=== PATIENT | female | born 1985 ===

== ENCOUNTER 2022-05-29 08:12 | Outpatient (CLI) | payer OTHER | END 2022-05-29 09:12 | disposition home or self-care (01) | LOC: PRENATAL 08:12 | PROVIDERS: ATTEND Obstetrics & Gynecology Maternal & Fetal Medicine | DX: O36.80X0 Pregnancy with inconclusive fetal viability, not applicable or unspecified (principal); O34.10 Maternal care for benign tumor of corpus uteri, unspecified trimester; O09.529 Supervision of elderly multigravida, unspecified trimester; Z3A.12 12 weeks gestation of pregnancy ==

== ENCOUNTER 2022-07-24 08:02 | Outpatient (CLI) | payer OTHER | END 2022-07-24 09:05 | disposition home or self-care (01) | LOC: PRENATAL 08:02 | PROVIDERS: ATTEND Obstetrics & Gynecology Maternal & Fetal Medicine | DX: O35.9XX0 Maternal care for (suspected) fetal abnormality and damage, unspecified, not applicable or unspecified (principal); O35.3XX0 Maternal care for (suspected) damage to fetus from viral disease in mother, not applicable or unspecified; O09.529 Supervision of elderly multigravida, unspecified trimester; O34.10 Maternal care for benign tumor of corpus uteri, unspecified trimester; Z3A.20 20 weeks gestation of pregnancy ==

== ENCOUNTER 2022-09-08 08:50 | Outpatient (CLI) | payer OTHER | END 2022-09-08 10:35 | disposition home or self-care (01) | LOC: PRENATAL 08:50 | PROVIDERS: ATTEND Obstetrics & Gynecology Maternal & Fetal Medicine | DX: O26.849 Uterine size-date discrepancy, unspecified trimester (principal); O09.529 Supervision of elderly multigravida, unspecified trimester; O34.10 Maternal care for benign tumor of corpus uteri, unspecified trimester; Z3A.26 26 weeks gestation of pregnancy ==

== ENCOUNTER 2022-09-11 07:43 | Outpatient (CLI) | payer OTHER | END 2022-09-12 10:58 | disposition home or self-care (01) | LOC: OBS/DEL 07:43 | PROVIDERS: ATTEND Student in an Organized Health Care Education/Training Program | DX: O34.42 Maternal care for other abnormalities of cervix, second trimester (principal); N84.1 Polyp of cervix uteri; O46.8X2 Other antepartum hemorrhage, second trimester; Z3A.27 27 weeks gestation of pregnancy; Z91.018 Allergy to other foods ==

== ENCOUNTER 2022-11-28 11:10 | Inpatient (IN) | payer OTHER ==
[~2022-11-28] VITALS: Ht 157.5 cm; Wt 92.1 kg
[2022-11-29] MEDS ORDERED: ADULT LOW DOSE81 M1 PO (17:08)
[2022-11-29] MEDS ORDERED: PROTONIX20 MG PO (17:09)
[2022-11-29] MEDS ORDERED: PRENATAL TABLE1 EAC1 PO (17:09)
[2022-12-04] MEDS ORDERED: PROTONIX20 MG PO (13:36)
[2022-12-04] MEDS ORDERED: PRENATABS RX T1 EACH PO (13:37)
== END 2022-12-07 19:08 | disposition home or self-care (01) | DRG 807 ==
LOC: LDR 12-04 12:23 → OB/GYN 12-05 09:59
PROVIDERS: Obstetrics & Gynecology; ADMIT Student in an Organized Health Care Education/Training Program; ATTEND Student in an Organized Health Care Education/Training Program
PROC: 3E0P7VZ Introduction of Hormone into Female Reproductive, Via Natural or Artificial Opening (ICD-10-PCS; 2022-12-04)
PROC: 4A1HXCZ Monitoring of Products of Conception, Cardiac Rate, External Approach (ICD-10-PCS; 2022-12-04)
PROC: 10E0XZZ Delivery of Products of Conception, External Approach (ICD-10-PCS; principal; 2022-12-05)
PROC: 0UQG7ZZ Repair Vagina, Via Natural or Artificial Opening (ICD-10-PCS; 2022-12-05)
PROC: 0W8NXZZ Division of Female Perineum, External Approach (ICD-10-PCS; 2022-12-05)
PROC: 3E033VJ Introduction of Other Hormone into Peripheral Vein, Percutaneous Approach (ICD-10-PCS; 2022-12-05)
DX: O71.4 Obstetric high vaginal laceration alone (principal); Z37.0 Single live birth; O99.824 Streptococcus B carrier state complicating childbirth; Z3A.39 39 weeks gestation of pregnancy

== ENCOUNTER 2022-11-29 14:03 | Outpatient (CLI) | payer OTHER ==
[2022-11-29] MEDS ORDERED: ADULT LOW DOSE81 M1 PO (17:08)
[2022-11-29] MEDS ORDERED: PRENATAL TABLE1 EAC1 PO (17:09)
[2022-11-29] MEDS ORDERED: PROTONIX20 MG PO (17:09)
== END 2022-11-29 17:39 | disposition home or self-care (01) ==
LOC: PRENATAL 14:03
PROVIDERS: ATTEND Obstetrics & Gynecology Maternal & Fetal Medicine
DX: O26.849 Uterine size-date discrepancy, unspecified trimester (principal); O09.529 Supervision of elderly multigravida, unspecified trimester; O34.10 Maternal care for benign tumor of corpus uteri, unspecified trimester; O36.5990 Maternal care for other known or suspected poor fetal growth, unspecified trimester, not applicable or unspecified; Z3A.38 38 weeks gestation of pregnancy